=== PATIENT | male | born 1975 | race Caucasian/White ===

== ENCOUNTER 2016-04-14 06:35 | Outpatient (CLI) | payer OTHER ==
[~2016-04-14] VITALS: Ht 190.5 cm; Wt 136.4 kg
[2016-04-14] MEDS ORDERED: PRINIVIL20 MG PO (07:34)
[2016-04-14 07:42] VITALS: BP 135/81; Ht 190.5 cm; Wt 136.4 kg
[2016-04-14 07:49] LABS: APTT 30.3 SECONDS (22.8-39.4); INR 1.03 (0.85-1.17); PROTIME 13.3 SECONDS (11.6-15.0)
[2016-04-14 07:53] LABS: CALC OSMOLALITY 282 mosm/kg (275-300); CALCIUM 9.2 mg/dL (8.5-10.1); CHLORIDE - SERUM 104 mmol/L (98-107); CREATININE - SERUM 0.9 mg/dL (0.6-1.3); GLUCOSE 102 mg/dL (74-106); POTASSIUM - SERUM 4.3 mmol/L (3.5-5.1); SODIUM 141 mmol/L (136-145); UREA NITROGEN 17 mg/dL (7-18); eGFR NON AFRICAN AMERICAN > 90 mL/min (90-120)
[2016-04-14 07:59] LABS: HEMATOCRIT 44.6 % (42.0-54.0); HEMOGLOBIN 15.6 g/dL (13.5-17.5); LYMPHOCYTES 30.3 % (15-50); MCH 30.2 pg (26.0-34.0); MCV 86.3 fL (80.0-100.0); MEAN PLATELET VOLUME 10.2 fL (7.4-10.4); NEUTROPHILS 59.6 % (40-80); PLATELET COUNT 211 10x3/uL (130-400); RBC 5.17 10x6/uL (4.20-6.10); RDW 13.4 % (11.5-14.5); WBC 6.6 10x3/uL (4.8-10.8)
== END 2016-04-14 12:35 | disposition home or self-care (01) ==
LOC: D.OPS 06:35 → D.SP 09:00 → D.OPS 09:00
PROVIDERS: Radiology Vascular & Interventional Radiology
DX: K76.0 Fatty (change of) liver, not elsewhere classified (principal)

== ENCOUNTER 2016-04-15 07:12 | Emergency (ER) | payer OTHER ==
[2016-04-14 07:42] VITALS: BMI 37.5
[~2016-04-15 07:12] MED LIST: PRINIVIL20 MG PO
[2016-04-15 07:44] LABS: BASOPHILS 0.1 % (0.0-2.0); EOSINOPHILS 0.1 % (0-7); HEMATOCRIT 46.3 % (42.0-54.0); HEMOGLOBIN 16.2 g/dL (13.5-17.5); IMMATURE GRANULOCYTES 0.4 % (0-5); LYMPHOCYTES 11.4 % (15-50); MCH 30.3 pg (26.0-34.0); MCV 86.5 fL (80.0-100.0); MEAN PLATELET VOLUME 10.4 fL (7.4-10.4); MONOCYTES 8.8 % (2-11); NEUTROPHILS 79.2 % (40-80); PLATELET COUNT 218 10x3/uL (130-400); RBC 5.35 10x6/uL (4.20-6.10); RDW 13.5 % (11.5-14.5)
[2016-04-15 07:46] LABS: WBC 18.9 10x3/uL (4.8-10.8)
[2016-04-15 07:51] LABS: INR 1.11 (0.85-1.17); PROTIME 14.2 SECONDS (11.6-15.0)
[2016-04-15 07:52] LABS: APTT 30.4 SECONDS (22.8-39.4)
[2016-04-15 07:57] LABS: ALKALINE PHOSPHATASE 37 U/L (46-116); ALT (SGPT) 210 U/L (10-68); BILIRUBIN - TOTAL 2.49 mg/dL (0.2-1.3); CALC OSMOLALITY 275 mosm/kg (275-300); CARBON DIOXIDE 25.9 mmol/L (21.0-32.0); CHLORIDE - SERUM 101 mmol/L (98-107); CREATININE - SERUM 0.9 mg/dL (0.6-1.3); GLUCOSE 116 mg/dL (74-106); POTASSIUM - SERUM 3.8 mmol/L (3.5-5.1); SODIUM 137 mmol/L (136-145); UREA NITROGEN 15 mg/dL (7-18); eGFR NON AFRICAN AMERICAN > 90 mL/min (90-120)
[2016-04-15 07:59] LABS: APPEARANCE CLEAR (CLEAR); BILIRUBIN NEGATIVE (NEGATIVE); COLOR DK YELLOW (YELLOW); GLUCOSE NEGATIVE (NEGATIVE); KETONE NEGATIVE (NEGATIVE); LEUKOCYTE ESTERASE NEGATIVE (NEGATIVE); NITRITE NEGATIVE (NEGATIVE); PROTEIN NEGATIVE (NEGATIVE); SPECIFIC GRAVITY 1.015 (1.005-1.020)
== END 2016-04-15 09:24 | disposition home or self-care (01) ==
LOC: D.ER 07:12
PROVIDERS: Emergency Medicine
DX: R10.9 Unspecified abdominal pain (principal); I10 Essential (primary) hypertension

== ENCOUNTER → 2017-09-12 14:36 | Outpatient (CLI) | payer OTHER ==
[2016-04-14 07:42] VITALS: BMI 37.5
== END | disposition home or self-care (01) ==
LOC: D.CT 14:36
DX: R51 Headache (principal)